=== PATIENT | female | born 1995 | race American Indian/Alaskan Native ===

== ENCOUNTER 2017-06-11 02:57 | Emergency (ER) | payer OTHER ==
[2017-06-11] MEDS ORDERED: ZOFRAN ODT PO ONE (03:13)
[2017-06-11] MEDS ORDERED: TYLENOL PO ONE (03:14)
[2017-06-11 03:55] LABS: Basophils % (Auto) 0.4 % (0.0-1.8); Eosinophils % (Auto) 2.2 % (0.0-4.3); Hematocrit 40.9 % (30.3-42.9); Hemoglobin 13.8 gm/dl (10.1-14.3); Mean Corpuscular HGB Conc 34 % (30-34); Mean Corpuscular Hemoglobin 30 pg (28-32); Mean Corpuscular Volume 90 fl (79-97); Platelet Count 348 K/mm3 (140-440); Red Blood Count 4.57 M/mm3 (3.65-5.03); Red Cell Distribution Width 12.3 % (13.2-15.2); White Blood Count 8.5 K/mm3 (4.5-11.0)
[2017-06-11 03:59] LABS: Alanine Aminotransferase 19 units/L (7-56); Albumin 4.4 g/dL (3.9-5); Alkaline Phosphatase 90 units/L (35-129); Anion Gap 19 mmol/L; Blood Urea Nitrogen 9 mg/dL (7-17); Calcium 9.4 mg/dL (8.4-10.2); Carbon Dioxide 25 mmol/L (22-30); Chloride 99.5 mmol/L (98-107); Glucose 87 mg/dL (65-100); Lipase 17 units/L (13-60); Potassium 3.8 mmol/L (3.6-5.0); Sodium 140 mmol/L (137-145); Total Protein 8.9 g/dL (6.3-8.2)
[2017-06-11 09:42] LABS: Bacteria,Urine 1+ /HPF (Negative); Bilirubin,Urine NEG (Negative); Blood,Urine NEG (Negative); Ketones,Urine 80 mg/dL (Negative); Leukocyte Esterase,Urine LG (Negative); Mucus,Urine 3+ /HPF; Nitrite,Urine NEG (Negative); Urobilinogen,Urine < 2.0 mg/dL (<2.0)
[2017-06-11 10:55] VITALS: BP 123/61
--- NOTE | 2017-06-11 12:12 | Emergency Department Report ---
ED Abdominal Pain HPI - General Chief Complaint: Abdominal Pain Stated Complaint: ABD PAIN Time Seen by Provider: 06/11/17 12:11 Source: patient Mode of arrival: Ambulatory Limitations: No Limitations - History of Present Illness Initial Comments: Patient states that she ate fish yesterday and now she has some mild periumbilical pain associated with nausea. She has not vomited. She denies fever or chills. The pain does not migrate or radiate. It is mild in intensity at this time. She denies vaginal discharge and she denies dysuria. She denies back pain. She appears to be symphysis that she has food poisoning. MD Complaint: abdominal pain -: Gradual Location: periumbilical Radiation: none Migration to: no migration Severity scale (0 -10): 4 Quality: aching Consistency: intermittent Improves With: nothing Worsens With: nothing Context: possible food poisoning Associated Symptoms: denies other symptoms, nausea, vomiting. denies: diarrhea , fever, chills - Related Data Previous Rx's Medication Instructions Recorded Last Taken Type Ondansetron [Zofran Odt] 4 mg PO Q6H #7 tab.rapdis 06/11/17 Unknown Rx traMADol [Ultram] 50 mg PO Q6HR PRN #10 tablet 06/11/17 Unknown Rx Allergies Allergy/AdvReac Type Severity Reaction Status Date / Time No Known Allergies Allergy Unverified 06/11/17 03:12 ED Review of Systems ROS: Stated complaint: ABD PAIN Other details as noted in HPI Constitutional: denies: chills, fever Eyes: denies: eye pain, eye discharge, vision change ENT: denies: ear pain, throat pain Respiratory: denies: cough, shortness of breath, wheezing Cardiovascular: denies: chest pain, palpitations Endocrine: no symptoms reported Gastrointestinal: as per HPI, abdominal pain, nausea, vomiting. denies: diarrhea Genitourinary: denies: urgency, dysuria, discharge Musculoskeletal: denies: back pain, joint swelling, arthralgia Skin: denies: rash, lesions Neurological: denies: headache, weakness, paresthesias Psychiatric: denies: anxiety, depression Hematological/Lymphatic: denies: easy bleeding, easy bruising ED Past Medical Hx - Past Medical History Previous Medical History?: No - Surgical History Past Surgical History?: No - Social History Smoking Status: Never Smoker Substance Use Type: None - Medications Home Medications: Home Medications Medication Instructions Recorded Confirmed Last Taken Type Ondansetron [Zofran Odt] 4 mg PO Q6H #7 tab.rapdis 06/11/17 Unknown Rx traMADol [Ultram] 50 mg PO Q6HR PRN #10 tablet 06/11/17 Unknown Rx ED Physical Exam - General Limitations: No Limitations General appearance: alert, in no apparent distress - Head Head exam: Present: atraumatic, normocephalic - Eye Eye exam: Present: normal appearance - ENT ENT exam: Present: mucous membranes moist - Neck Neck exam: Present: normal inspection - Respiratory Respiratory exam: Present: normal lung sounds bilaterally. Absent: respiratory distress - Cardiovascular Cardiovascular Exam: Present: regular rate, normal rhythm. Absent: systolic murmur, diastolic murmur, rubs, gallop - GI/Abdominal GI/Abdominal exam: Present: soft, normal bowel sounds. Absent: distended, tenderness, guarding, rebound, rigid - Extremities Exam Extremities exam: Present: normal inspection - Back Exam Back exam: Present: normal inspection - Neurological Exam Neurological exam: Present: alert, oriented X3, CN II-XII intact. Absent: motor sensory deficit - Psychiatric Psychiatric exam: Present: normal affect, normal mood - Skin Skin exam: Present: warm, dry, intact, normal color. Absent: rash ED Course Vital Signs 06/11/17 06/11/17 06/11/17 03:03 10:39 10:55 Temperature 98.0 F Pulse Rate 88 91 H 88 Respiratory 18 16 Rate Blood Pressure 124/77 Blood Pressure 123/61 [Right] O2 Sat by Pulse 100 98 98 Oximetry - Reevaluation(s) Reevaluation #1: Patient's lab exam exam as well as vital signs do not indicate a significant process. She will be treated with some IV fluids anti-emetics and analgesia. She has been informed to return any progression of the pain acute change or problems. 06/11/17 12:31 ED Medical Decision Making - Lab Data Result diagrams: 06/11/17 03:22 06/11/17 03:22 Laboratory Results - last 24 hr 06/11/17 06/11/17 06/11/17 03:22 03:22 03:22 WBC 8.5 RBC 4.57 Hgb 13.8 Hct 40.9 MCV 90 MCH 30 MCHC 34 RDW 12.3 L Plt Count 348 Lymph % (Auto) 19.7 [place] % (Auto) 4.7 Eos % (Auto) 2.2 Baso % (Auto) 0.4 Lymph # 1.7 [place]wsley # 0.4 Eos # 0.2 Baso # 0.0 Seg Neutrophils % 73.0 H Seg Neutrophils # 6.2 Sodium 140 Potassium 3.8 Chloride 99.5 Carbon Dioxide 25 Anion Gap 19 BUN 9 Creatinine 0.5 L Estimated GFR > 60 BUN/Creatinine Ratio 18.00 Glucose 87 Calcium 9.4 Total Bilirubin 0.60 AST 25 ALT 19 Alkaline Phosphatase 90 Total Protein 8.9 H Albumin 4.4 Albumin/Globulin Ratio 1.0 Lipase 17 HCG, Qual Negative Urine Color Urine Turbidity Urine pH Ur Specific Elwin Urine Protein Urine Glucose (UA) Urine Ketones Urine Blood Urine Nitrite Urine Bilirubin Urine Urobilinogen Ur Leukocyte Esterase Urine WBC (Auto) Urine RBC (Auto) U Epithel Cells (Auto) Urine Bacteria (Auto) Urine Mucus 06/11/17 09:10 WBC RBC Hgb Hct MCV MCH MCHC RDW Plt Count Lymph % (Auto) [place] % (Auto) Eos % (Auto) Baso % (Auto) Lymph # [place] # Eos # Baso # Seg Neutrophils % Seg Neutrophils # Sodium Potassium Chloride Carbon Dioxide Anion Gap BUN Creatinine Estimated GFR BUN/Creatinine Ratio Glucose Calcium Total Bilirubin AST ALT Alkaline Phosphatase Total Protein Albumin Albumin/Globulin Ratio Lipase HCG, Qual Urine Color Yellow Urine Turbidity Clear Urine pH 6.0 Ur Specific [place]win 1.030 Urine Protein 30 mg/dl Urine Glucose (UA) Neg Urine Ketones 80 Urine Blood Neg Urine Nitrite Neg Urine Bilirubin Neg Urine Urobilinogen < 2.0 Ur Leukocyte Esterase Lg Urine WBC (Auto) 10.0 H Urine RBC (Auto) 4.0 U Epithel Cells (Auto) 6.0 Urine Bacteria (Auto) 1+ Urine Mucus 3+ Critical care attestation.: If time is entered above; I have spent that time in minutes in the direct care of this critically ill patient, excluding procedure time. ED Disposition Clinical Impression: Abdominal pain Qualifiers: Abdominal location: periumbilical Qualified Code(s): R10.33 - Periumbilical pain Disposition: TO HOME OR SELFCARE Is pt being admited?: No Does the pt Need Aspirin: No Condition: Stable Instructions: Abdominal Pain (ED) Additional Instructions: Return any migration of the pain particularly to the right lower aspect of the abdomen fever or chills increase intensity of pain. Follow-up with a primary care provider. Prescriptions: Ondansetron [Zofran Odt] 4 mg PO Q6H #7 tab.rapdis traMADol [Ultram] 50 mg PO Q6HR PRN #10 tablet PRN Reason: Pain Referrals: PRIMARY CARE, [Primary Care Provider] - 2-3 Days [facility] [Provider Group] - 2-3 Days Time of Disposition: 12:34
[2017-06-11] MEDS ORDERED: MORPHINE IV ONE (12:35)
[2017-06-11] MEDS ORDERED: ZOFRAN IV ONE (12:35)
[2017-06-11] MEDS ORDERED: NACL 0.9% 1000 ML 1,000 ML IV ONE (12:35)
== END 2017-06-11 13:57 | disposition home or self-care (01) ==
LOC: ED 02:57
DX: R10.33 Periumbilical pain (principal)
CPT/HCPCS: 36415; 80053; 81001; 83690; 84703; 85025; 96361; 96374; 96375; 99283; J2270; J2405; J7030; Q0162